=== PATIENT | male | born 2000 | race Caucasian/White ===

== ENCOUNTER 2020-09-08 18:26 | Emergency (ER) | payer OTHER, MEDICARE ==
[~2020-09-08] VITALS: Ht 172.7 cm; Wt 90.7 kg
--- OUTSIDE RECORDS SUMMARY | 2020-09-08 18:28 | XMS ---
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 Guidelines Source: [employer] - [place] Guidelines Date: 04/11/2020 Care Coordination: Member is currently enrolled in Mental Health Services through [employer] If services are needed through [employer] please call: Rudy [phone] Matt[facility]Juan Whitaker[facility]; [phone] Crisis [phone] E.D. VISIT COUNT (12 MO.) 1 [facility] TOTAL 1 NOTE: Visits indicate total known visits. ED/UCC VISIT TRACKING (12 MO.) 09/08/2020 18:[address] [facility] TYPE: Emergency COMPLAINT: - FOOT PAIN, INJ INPATIENT VISIT TRACKING (12 MO.) No inpatient visits to display in this time frame [id number]
[2020-09-08] MEDS ORDERED: GUANFACINE HCL E1 MG PO (20:23)
[2020-09-08] MEDS ORDERED: CATAPRES0.1 MG PO (20:23)
== END 2020-09-08 22:10 | disposition home or self-care (01) ==
LOC: ED 18:26
DX: S90.32XA Contusion of left foot, initial encounter (principal); Z79.899 Other long term (current) drug therapy; W22.8XXA Striking against or struck by other objects, initial encounter; Y99.0 Civilian activity done for income or pay; F32.9 Major depressive disorder, single episode, unspecified
CPT/HCPCS: 73630; 99283-25